=== PATIENT | female | born 1995 | race Caucasian/White ===

== ENCOUNTER 2016-10-26 08:24 | Emergency (ER) | payer OTHER ==
[2016-10-26] MEDS ORDERED: NS 0.9% 1000 ML* 1,000 ML IV ONE (09:04)
[2016-10-26] MEDS ORDERED: Ondansetron INJ* 2 MG/ML VIAL IV ONE (09:05)
[2016-10-26 10:47] VITALS: BP 119/71
--- NOTE | 2016-10-26 11:33 | UC ---
Dg Liang Benjamin, scribed for Ann Jara DO on 10/26/16 at 0925 . Abdominal Pain Female HPI - HPI Summary HPI Summary: 21yo female who took augmentin in the past 5 days for sinus infection and reports having V/D the past 3 days. Pt describes her stool as loose and green. Also states bilateral lower abdominal pain/crampy. Pt reports diaphoresis, and still having "sinus infection symptoms" but states that she never had congestion. She also states that she believes that the sinus symtoms are allergic in origin. Negative PMHx and FHx. - History of Current Complaint Chief Complaint: UCGI Stated Complaint: VOMITING/DIARRHEA Hx Obtained From: Patient Onset/Duration: Gradual Onset, Lasting Days - 3 days, Still Present Severity Initially: Mild Severity Currently: Moderate Pain Scale Used: 0-10 Numeric Location: Discrete At: RLQ, Discrete At: LLQ Radiates: No Character: Cramping Aggravating Factor(s): Nothing Alleviating Factor(s): Nothing Associated Signs and Symptoms: Positive: Decreased Appetite, Nausea, Vomiting, Diarrhea. Negative: Fever, Dizzy, Back Pain, Constipation, Blood in Stool, Urinary Symptoms Allergies/Adverse Reactions: Allergies Allergy/AdvReac Type Severity Reaction Status Date / Time No Known Allergies Allergy Verified 10/26/16 08:31 Home Medications: Home Medications Amoxicillin/Clavulanate TAB* [Augmentin TAB 875*] 875 mg PO BID 10/26/16 [ History Confirmed 10/26/16] PMH/Surg Hx/FS Hx/Imm Hx Previously Healthy: Yes - Surgical History Surgical History: None - Family History Known Family History: Positive: None Negative: Cardiac Disease, Hypertension, Diabetes - Social History Occupation: Employed Full-time Lives: With Family Alcohol Use: Rare Substance Use Type: None Smoking Status (MU): Never Smoked Tobacco Review of Systems Constitutional: Other - diaphoresis Skin: Negative Eyes: Negative ENT: Negative Respiratory: Negative Cardiovascular: Negative Gastrointestinal: Abdominal Pain, Diarrhea Genitourinary: Negative Motor: Negative Neurovascular: Negative Musculoskeletal: Negative Neurological: Negative Psychological: Negative All Other Systems Reviewed And Are Negative: Yes Physical Exam Triage Information Reviewed: Yes Appearance: Well-Nourished, Ill-Appearing, Pain Distress - mild Vital Signs: Initial Vital Signs Temp 98.6 F 10/26/16 08:25 Pulse 129 10/26/16 08:25 Resp 18 10/26/16 08:25 BP 146/95 10/26/16 08:25 Pulse Ox 99 10/26/16 08:25 Vital Signs Reviewed: Yes Eyes: Positive: Conjunctiva Clear. Negative: Discharge ENT: Positive: Hearing grossly normal. Negative: Muffled/hoarse voice Neck exam: Normal Neck: Positive: Supple Respiratory: Positive: Lungs clear, Normal breath sounds, No respiratory distress Cardiovascular: Positive: No Murmur, Tachycardia Abdominal Exam: Normal Abdomen Description: Positive: Nontender, Soft. Negative: McBurney's Point Tenderness, Peritoneal Signs Musculoskeletal: Positive: Strength Intact, ROM Intact Neurological: Positive: Alert Psychological: Positive: Age Appropriate Behavior Skin Exam: Normal Skin: Negative: rashes Abd Pain Female Course/Dx - Course Course Of Treatment: UA: positive for protein, ketone, and billirubin. neg pregancy test. - Differential Dx/Diagnosis Provider Diagnoses: acute nausea and vomiting Discharge - Discharge Plan Condition: Stable Disposition: HOME Prescriptions: Ondansetron TAB* [Zofran Tab*] 4 mg PO Q6H PRN #10 tab PRN Reason: Nausea/Vomiting Patient Education Materials: Ondansetron (By mouth), Dehydration (ED), Acute Nausea and Vomiting (ED), Nutrition Tips for Relief of Diarrhea (ED) Referrals: Nemo Prakash [Primary Care Provider] - If Needed Additional Instructions: STOP TAKING AUGMENTIN, IT IS LIKELY THE CAUSE OF YOUR SYMPTOMS. TRY ORLIN TEA FOR FOR YOUR NAUSEA AND VOMITING. IF ORLIN DOES NOT ADAQUATELY CONTROL YOUR SYMPTOMS, YOU CAN TRY ZOFRAN. ANYTIME YOU TAKE AN ANTIBIOTIC, IT IS IMPORTANT TO REPLENISH THE BODY'D SUPPLY OF "GOOD BACTERIA." YOU CAN GET GOOD BACTERIA FROM HIGH QUALITY CULTURED FOODS SUCH LOCAL YOGURT, SOUR KRAUT, CASANDRA VICENTE, NATURALLY FERMENTED PICKLES AND PROBIOTIC DRINKS. YOU CAN ALSO GET GOOD BACTERIA FROM A PROBIOTIC SUPPLEMENT. The documentation as recorded by the Dg pettit Benjamin accurately reflects the service I personally performed and the decisions made by me, Ann Jara DO.
--- NOTE | 2016-10-26 14:09 | UC ---
Progress - Progress Note Progress Note: pt stool tested positive for c. diff. please call pt and inform. flagyl 500 mg po tid x 14 days sent. please make sure that pt knows to follow up with pcp in 5-7 days to assess efficacy of tx. if no significant improvement, pt should be switched to oral vanco.
== END 2016-10-26 10:40 | disposition home or self-care (01) ==
LOC: UCEAST 08:24
DX: R11.2 Nausea with vomiting, unspecified (principal); A04.7 Enterocolitis due to Clostridium difficile
CPT/HCPCS: 81003; 84702; 87045; 87046; 87493; 87899; 96361; 96374; 99212; G0463; J2405